=== PATIENT | male | born 1960 | race Caucasian/White ===

== ENCOUNTER → 2017-12-17 | Outpatient (CLI) | payer BC ==
[~2017-12-17] MED LIST: ACTOS30 MG PO; AMBIEN CR12.5 MG PO; FORTAMET1000 MG PO; GLIMEPIRIDE2 MG PO; JANUVIA 100MG100 MG PO; SERTRALINE100 MG PO; SIMVASTATIN40 MG PO
== END ==
LOC: COL.RAD 08:54
DX: M48.02 Spinal stenosis, cervical region (principal); M50.222 Other cervical disc displacement at C5-C6 level; M79.602 Pain in left arm; R20.0 Anesthesia of skin; R20.2 Paresthesia of skin; R60.0 Localized edema

== ENCOUNTER → 2020-06-17 | Outpatient (CLI) | payer BC | LOC: ZCOL.LAB 16:29 | DX: Z20.828 Contact with and (suspected) exposure to other viral communicable diseases (principal) ==

== ENCOUNTER → 2022-01-01 | Outpatient (CLI) | payer BC | LOC: COL.RAD 07:08 | DX: R10.13 Epigastric pain (principal) ==